=== PATIENT | male | born 1975 | race Caucasian/White ===

== ENCOUNTER 2019-05-28 11:58 | Emergency (ER) | payer OTHER ==
[~2019-05-28] VITALS: Ht 170.2 cm; Wt 100.1 kg
[2019-05-28] MEDS ORDERED: PREDNISONE 20MG TABLET PO ONE (13:15)
[2019-05-28] MEDS ORDERED: ACYCLOVIR 400 MG TABLET PO ONE (13:15)
[2019-05-28] MEDS: AMLODIPINE 2.5MG TABLET PO ONE ×2 (13:15→14:32)
[2019-05-28 14:49] VITALS: BP 129/78
== END 2019-05-28 15:37 | disposition home or self-care (01) ==
LOC: ER 14:28
DX: G51.0 Bell's palsy (principal); I16.0 Hypertensive urgency; E11.65 Type 2 diabetes mellitus with hyperglycemia; I10 Essential (primary) hypertension
CPT/HCPCS: 82962; 99283; J7512